=== PATIENT | male | born 1955 | race Caucasian/White ===

== ENCOUNTER 2021-01-29 15:58 | Emergency (ER) | payer MEDICARE ==
[2021-01-29 16:34] LABS: BASOPHIL 0.3 % (0-2); EOSINOPHIL 0 % (0-7); HCT 39.7 % (42.0-52.0); HGB 13.1 g/dl (13.2-18.0); LYMPHOCYTE 10.7 % (15-48); MCH 31.4 pg (25.0-31.0); MCV 95.2 fL (78.0-100.0); MONOCYTE 11.7 % (0-12); MPV 9.9 fL (6.0-9.5); NEUTROPHIL 76.7 % (41-80); NRBC 0; PLT 283 K/uL (150-400); RBC 4.17 M/uL (4.70-6.00); RDW 13.1 % (11.5-14.0); WBC 6.5 K/uL (4.0-10.5)
[2021-01-29 16:44] LABS: INR 1.12 (0.9-1.2); PROTHROMBIN TIME 13.8 SECONDS (11.8-13.4)
[2021-01-29 16:45] LABS: PTT 46.8 SECONDS (24.4-34.7)
[2021-01-29 16:46] LABS: D-DIMER 1.15 ug/mLFEU (0.00-0.41)
[2021-01-29 16:55] LABS: ALBUMIN 3.2 g/dL (3.4-5.0); BILIRUBIN - TOTAL 0.4 mg/dL (0.2-1.0); BUN/CREAT RATIO (CALC) 10.2 RATIO; CREATININE 2.06 mg/dL (0.67-1.17); GLOBULIN (CALCULATION) 3.7 g/dL; POTASSIUM 3.6 mmol/L (3.5-5.1); PRO-BNP 1285 pg/mL (<125); TOTAL PROTEIN 6.9 g/dL (6.4-8.2)
[2021-01-29] MEDS ORDERED: LEVAQUIN500 MG PO (18:11)
== END 2021-01-29 20:30 | disposition home or self-care (01) ==
LOC: FER 15:58
PROVIDERS: Emergency Medicine
DX: J18.9 Pneumonia, unspecified organism (principal); J90 Pleural effusion, not elsewhere classified; R60.0 Localized edema; I45.10 Unspecified right bundle-branch block; I10 Essential (primary) hypertension; Z88.2 Allergy status to sulfonamides
CPT/HCPCS: 36415; 71250; 80053; 83880; 84484; 85025; 85379; 85610; 85730; 93005; J0461; J1956; J7030

== ENCOUNTER 2021-05-14 10:20 | Emergency (ER) | payer MEDICARE, OTHER ==
[~2021-05-14 10:20] MED LIST: LEVAQUIN500 MG PO
[2021-05-14] MEDS ORDERED: KEFLEX250 MG PO (12:21)
[2021-05-14] MEDS ORDERED: CYCLOBENZAPRINE5 MG PO (12:26)
[2021-05-14] MEDS ORDERED: VENTOLIN HFA IN18 GM INH (12:26)
== END 2021-05-14 12:22 | disposition home or self-care (01) ==
LOC: FER 10:20
DX: S80.01XA Contusion of right knee, initial encounter (principal); S80.11XA Contusion of right lower leg, initial encounter; S90.31XA Contusion of right foot, initial encounter; L03.115 Cellulitis of right lower limb; I10 Essential (primary) hypertension; Z88.2 Allergy status to sulfonamides; Z91.041 Radiographic dye allergy status; Z79.82 Long term (current) use of aspirin; W01.0XXA Fall on same level from slipping, tripping and stumbling without subsequent striking against object, initial encounter
CPT/HCPCS: 73590; 73620; 93971